=== PATIENT | male | born 1985 | race Caucasian/White ===

== ENCOUNTER 2017-11-02 08:55 | Emergency (ER) | payer OTHER ==
[~2017-11-02] VITALS: Ht 182.9 cm; Wt 83.9 kg
[~2017-11-02 08:55] MED LIST: IBUP800T19 PO
[2017-11-02 09:13] VITALS: BP 138/94
[2017-11-02] MEDS ORDERED: DICL100G18 TP (09:44)
--- NOTE | 2017-11-02 09:47 | PHYS DOC ---
Past History Past Medical History: No Pertinent History Past Surgical History: Tonsillectomy Alcohol Use: None Drug Use: Marijuana Adult General Chief Complaint Chief Complaint: KNEE INJURY HPI HPI Patient is a 32 year old M who presents with right knee pain over the past 3-4 days. His no known previous injury. He describes swelling and pain in the distal medial edge of his knee. He feels that his pain is worse with weightbearing and particularly worse with straightening his leg. His pain is improved with positioning and rest. He has no other associated symptoms. He has no other exacerbating or relieving factors. Review of Systems Review of Systems Constitutional: Denies fever or chills [] Eyes: Denies change in visual acuity, redness, or eye pain [] HENT: Denies nasal congestion or sore throat [] Respiratory: Denies cough or shortness of breath [] Cardiovascular: No additional information not addressed in HPI [] GI: Denies abdominal pain, nausea, vomiting, bloody stools or diarrhea [] : Denies dysuria or hematuria [] Musculoskeletal: Denies back pain Integument: Denies rash or skin lesions [] Neurologic: Denies headache, focal weakness or sensory changes [] Endocrine: Denies polyuria or polydipsia [] All other systems were reviewed and found to be within normal limits, except as documented in this note. Family History Family History No pertinent medical history was reported Current Medications Current Medications Current medications reviewed Allergies Allergies Allergies Coded Allergies Type Severity Reaction Last Updated Verified No Known Drug Allergies 06/08/16 No Physical Exam Physical Exam Constitutional: Well developed, well nourished, no acute distress, non-toxic appearance. [] HENT: Normocephalic, atraumatic Eyes: EOMI, conjunctiva normal, no discharge. [] Neck: Normal range of motion, no tenderness, supple, no stridor. [] Cardiovascular:Heart rate regular rhythm, no murmur [] Lungs & Thorax: Bilateral breath sounds clear to auscultation [] Abdomen: Bowel sounds normal, soft, no tenderness, no masses, no pulsatile masses. [] Skin: Warm, dry, no erythema, no rash. [] Extremities: no cyanosis, no clubbing, right knee: Moderate swelling noted without erythema. Moderate generalized tenderness palpation with localized tenderness over the medial and lateral distal knee. Mild ductions and range of motion with extension and flexion by approximately 25 any striction. Strength testing limited due to pain. Neurologic: Alert and oriented X 3, normal motor function, normal sensory function, no focal deficits noted. [] Psychologic: Affect normal, judgement normal, mood normal. [] Current Patient Data Vital Signs Vital Signs Date Time Temp Pulse Resp B/P (MAP) Pulse Ox O2 Delivery O2 Flow Rate FiO2 11/02/17 09:13 97.6 104 16 98 Room Air EKG EKG [] Radiology/Procedures Radiology/Procedures Right knee x-ray Impressions: No acute disease Course & Med Decision Making Course & Med Decision Making Pertinent Labs and Imaging studies reviewed. (See chart for details) [] Dragon Disclaimer Dragon Disclaimer This electronic medical record was generated, in whole or in part, using a voice recognition dictation system. Departure Departure: Impression: Primary Impression: Right knee sprain Disposition: HOME, SELF-CARE Condition: STABLE Referrals: PCP,NO (PCP) Patient Instructions: Knee Sprain Additional Instructions: Sobeida was seen in the emergency department for knee pain. No emergency medical condition was found on history or physical exam. He did have normal x- ray. His symptoms are most consistent with a knee sprain. He is advised to use anti-inflammatory medications for his pain or a prescription given to him for a topical anti-inflammatory called Voltaren gel. He was encouraged follow-up with orthopedics in the next 3-5 days for further management. Scripts Diclofenac Sodium (VOLTAREN) 100 Gm Gel..gram. 1 GM TP QID, #100 GM 2 Refills Prov: XIMENA OBANDO MD 11/02/17 Problem Qualifiers Primary Impression: Right knee sprain Encounter type: initial encounter Involved ligament of knee: unspecified ligament Qualified Codes: S83.91XA - Sprain of unspecified site of right knee , initial encounter XIMENA OBANDO MD Nov 02, 2017 09:47
--- NOTE | 2017-11-02 10:17 | RAD ---
KNEE RIGHT 3V Indication: PAIN RT KNEE NO KNOWN INJURY, UNABLE TO STRAIGHTEN KNEE FOR 3 DAYS . Comparison: No comparison is available. FINDINGS: No acute fracture. No bone destruction. Joint spaces are intact. There may be a small suprapatellar joint effusion. IMPRESSION: No acute fracture or dislocation Electronically signed by: Main Ibarra MD (11/02/2017 10:14 AM) [id number]
== END 2017-11-02 10:00 | disposition home or self-care (01) ==
LOC: ER 08:55
DX: S83.91XA Sprain of unspecified site of right knee, initial encounter (principal); F12.10 Cannabis abuse, uncomplicated; X58.XXXA Exposure to other specified factors, initial encounter; Y93.89 Activity, other specified; Y99.8 Other external cause status; Y92.89 Other specified places as the place of occurrence of the external cause
CPT/HCPCS: 73562; 99284